=== PATIENT | female | born 1985 | race Caucasian/White ===

== ENCOUNTER → 2024-06-04 13:22 | Outpatient (REF) | payer OTHER, SELFPAY | LOC: RCS 13:22 | PROVIDERS: ATTENDING PHYSICIAN Nuclear Medicine Nuclear Cardiology; FAMILY PHYSICIAN Internal Medicine | DX: E11.9 Type 2 diabetes mellitus without complications (principal); R07.89 Other chest pain; R00.2 Palpitations; R94.31 Abnormal electrocardiogram [ECG] [EKG]; E78.5 Hyperlipidemia, unspecified | CPT/HCPCS: 93017 ==

== ENCOUNTER → 2024-06-11 12:47 | Outpatient (REF) | payer OTHER, SELFPAY | LOC: HWRCS 12:47 | PROVIDERS: ATTENDING PHYSICIAN Nuclear Medicine Nuclear Cardiology; FAMILY PHYSICIAN Internal Medicine | DX: E11.9 Type 2 diabetes mellitus without complications (principal); R07.89 Other chest pain; R00.2 Palpitations; R94.31 Abnormal electrocardiogram [ECG] [EKG] | CPT/HCPCS: 93306 ==